=== PATIENT | male | born 1960 | race Caucasian/White ===

== ENCOUNTER 2016-08-28 15:37 | Emergency (ER) | payer BC ==
--- NOTE | 2016-08-28 16:05 | EDM.PDOC ---
ED HPI Trauma - General Chief Complaint: Upper Extremity Injury/Pain Stated Complaint: LEFT RING FINGER LAC Time Seen by Provider: 08/28/16 16:05 - History of Present Illness INITIAL COMMENTS - FREE TEXT/NARRATIVE: 56-year-old male presents emergency room after injuring his left ring finger. This occurred shortly before arrival. The patient was dumping a bag of cement into a small rn placement and got his finger caught between the bag and the lip of the rn placement. The patient has partially avulsed his fingernail and he has significant discomfort with this. He denies any other injury. Patient is unsure of his last tetanus shot. Allergies/ADRs: Allergies No Known Allergies Allergy (Verified 08/28/16 16:07) Home Medications: Ambulatory Orders Cephalexin [Keflex] 500 mg PO Q6HR #28 cap 08/28/16 Hydrocodone/Acetaminophen [Grass Range 5-325 Tablet] 1 - 2 each PO Q6H PRN #6 tablet 08/28/16 Review of Systems - Review of Systems Review Of Systems: See Below Constitutional: Reports: no symptoms Respiratory: Reports: No Symptoms Cardiovascular: Reports: no symptoms GI/Abdominal: Reports: No symptoms Trauma Exam - Physical Exam Exam: See Below Exam Limited By: No limitations General Appearance: Reports: alert, no apparent distress Respiratory Exam: Reports: no respiratory distress, lungs clear, normal breath sounds Cardiovascular: Reports: regular rate, rhythm, no edema, no murmur Extremities: Reports: other (Examination of his left fourth finger shows a distal partial avulsion with proximal superficial lacerations that extend to the nail plate that are short. Patient is discomfort with active range of motion of the distal phalanx. But flexion and extension appears to be intact. Neurovascular status of the hand and fingers normal.) ED TRAUMA EXTREMITY PROCEDURES - Laceration/Wound Repair Left Finger Lac/wound length in cm: 1 Appearance: subcutaneous, irregular Distal NVT: neuro & vascular intact, no tendon injury Anesthetic type: digital Local anesthesia - Lidocaine (Xylocaine): 1% plain Local anesthetic volume: 2cc Skin prep: saline Exploration/Debridement/Repair: wound explored, in a bloodless field, explored to base, no foreign material found Closed with: sutures Suture size: 3-0 # of sutures: 2 Tetanus status addressed: Yes (His tetanus was brought up-to-date today) Complications: No Progress/Comments: Patient had satisfactory anesthesia with 2 cc 1% lidocaine without epinephrine the left fourth finger. Thorough examination of the laceration shows intact skin underneath the nail plate at the distal finger over a 1 cm laceration there is a large gap to the skin margin probably 3-4 mm in the center. 2 holes were bored of the nail plate using the disposable electro-Bovie unit. Then using 3-0 nylon suture placed through each hole to the skin margin below this yielded fairly good wound approximation. Patient tolerated this without difficulty Course - Vital Signs Last Recorded V/S: Last Vital Signs Temp 37.1 C 08/28/16 16:04 Pulse 120 H 08/28/16 16:04 Resp 16 08/28/16 16:04 BP 164/98 H 08/28/16 16:04 Pulse Ox 96 08/28/16 16:04 - Orders/Labs/Meds Orders: Active Orders 24 hr Category Date Time Status Vaccines to be Administered [RC] PER UNIT ROUTINE Care 08/28/16 16:23 Active Fingers Fourth Digit Lt F3 [CR] Stat Exams 08/28/16 16:23 Taken Meds: Medications Discontinued Medications Generic Name Dose Route Start Last Admin Trade Name Freq PRN Reason Stop Dose Admin Diphtheria/Tetanus/Acell Pertussis 0.5 ml 08/28/16 16:23 08/28/16 16:41 Boostrix IM 08/28/16 16:24 0.5 ml .ONCE ONE Administration Lidocaine HCl 50 ml 08/28/16 16:22 08/28/16 16:42 Xylocaine 1% INJECT 08/28/16 16:23 50 ml ONETIME ONE Administration - Re-Assessments/Exams Free Text/Narrative Re-Assessment/Exam: 08/28/16 17:28 X-ray examination is probably normal as a questionable faint possible chip fracture on the palmar surface of the tuft. No other fracture dislocation or abnormality noted on x-ray the patient will be placed in a finger splint he will be discharged on a 5 day course of cephalexin and he will be given a few hydrocodone as he is quite worried his fingers can be really tender after the numbing medicine wears off and Departure - Departure Time of Disposition: 17:29 Disposition: Home, Self-Care 01 Clinical Impression: Finger laceration Prescriptions: Cephalexin [Keflex] 500 mg PO Q6HR #28 cap Hydrocodone/Acetaminophen [Grass Range 5-325 Tablet] 1 - 2 each PO Q6H PRN #6 tablet PRN Reason: Pain Forms: ED Department Discharge Additional Instructions: Return to the emergency room with any questions or problems. Followup in the hospital clinic in 12-14 days for suture removal. He been started on cephalexin, this is an antibiotic to take 4 times daily for 7 days. You have been given a few pain pills, hydrocodone, one or 2 every 6 hours as needed for pain. Allow 12 hours after using this medication before driving or returning to work. Wear the splint for at least 10 days. It can be removed for cleaning. Keep the finger clean and dry for the next 24 hours. After 24 hours he may let water run over it for a few seconds and then gently dab dry. - My Orders Last 24 Hours: My Active Orders 08/28/16 16:23 Vaccines to be Administered [RC] PER UNIT ROUTINE Fingers Fourth Digit Lt F3 [CR] Stat - Assessment/Plan Last 24 Hours: My Active Orders 08/28/16 16:23 Vaccines to be Administered [RC] PER UNIT ROUTINE Fingers Fourth Digit Lt F3 [CR] Stat
[2016-08-28 16:07] VITALS: BP 164/98
[2016-08-28] MEDS ORDERED: Lidocaine 1% 50 ML MDV INJECT ONE (16:22)
[2016-08-28] MEDS ORDERED: Diphtheria,Pertussis(Acell),Tetanus Vaccine 0.5 ML SDV inactive IM ONE (16:23)
--- NOTE | 2016-08-29 11:58 | CR ---
Left fourth finger: Three views centered to the left fourth finger were obtained. Comparison: No previous study. Soft tissue swelling is identified. No fracture, dislocation or other bony abnormality is seen. Impression: 1. Soft tissue swelling. No bony abnormality is identified on left fourth finger study. Diagnostic code #2
== END 2016-08-28 17:45 | disposition home or self-care (01) ==
LOC: JD.ED 15:37
DX: S61.215A Laceration without foreign body of left ring finger without damage to nail, initial encounter (principal); Z23 Encounter for immunization; W23.0XXA Caught, crushed, jammed, or pinched between moving objects, initial encounter
CPT/HCPCS: 12001; 73140-26-F3; 73140-F3; 90471; 90715; 99283-25

== ENCOUNTER 2020-01-07 08:00 | Day surgery (SDC) | payer BC, MEDICAID ==
[~2020-01-07 08:00] MED LIST: Lactated Ringers 1,000 ML IV SCH; Lidocaine 1%/Sod Bicarbonate in NS 8.4% 1 ML Syringe IDERM PRN; Sodium Chloride 0.9% 10 ML Syringe FLUSH PRN
--- NOTE | 2020-01-07 08:16 | PCM.PREANE ---
Preanesthetic Assessment - Procedure Proposed Procedure: Colonoscopy - Anesthesia/Transfusion/Family Hx Anesthesia History: Prior Anesthesia Without Reaction Family History of Anesthesia Reaction: No Transfusion History: No Prior Transfusion(s) - Review of Systems General: No Symptoms Pulmonary: No Symptoms Cardiovascular: No Symptoms Gastrointestinal: No Symptoms Neurological: No Symptoms Other: Reports: Diabetes (gluco check this am 132) - Physical Assessment NPO Status Date: 01/06/20 NPO Status Time: 00:00 Height: 1.7 m Weight: 118.9 kg ASA Class: 3 Mental Status: Alert & Oriented x3 Airway Class: Mallampati = 2 Dentition: Reports: Dentures Thyro-Mental Finger Breadths: 2 Mouth Opening Finger Breadths: 2 ROM/Head Extension: Full Lungs: Clear to Auscultation, Normal Respiratory Effort, Decreased Breath Sounds Cardiovascular: Regular Rate, Regular Rhythm - Lab Values: Laboratory Last Values COVID-19 PCR Not detected (NOT DETECT) 01/03/20 11:40 - Allergies Allergies/Adverse Reactions: Allergies Allergy/AdvReac Type Severity Reaction Status Date / Time No Known Allergies Allergy Verified 01/04/20 14:53 - Blood Blood Available: No Product(s) Available: None - Anesthesia Plan Pre-Op Medication Ordered: None - Acknowledgements Anesthesia Type Planned: MAC Pt an Appropriate Candidate for the Planned Anesthesia: Yes Alternatives and Risks of Anesthesia Discussed w Pt/Guardian: Yes Pt/Guardian Understands and Agrees with Anesthesia Plan: Yes PreAnesthesia Questionnaire HEENT History: Reports: Impaired Vision, Other (See Below) Other HEENT History: wears glasses Cardiovascular History: Reports: None Respiratory History: Reports: None Gastrointestinal History: Reports: None Genitourinary History: Reports: None [employer] History: Reports: None Musculoskeletal History: Reports: Other (See Below) Other Musculoskeletal History: left hand surgery Neurological History: Reports: None Psychiatric History: Reports: None Endocrine/Metabolic History: Reports: Diabetes, Type II, Obesity/BMI 30+ Hematologic History: Reports: None Immunologic History: Reports: None Oncologic (Cancer) History: Reports: None Dermatologic History: Reports: None - Infectious Disease History Infectious Disease History: Reports: None - Past Surgical History Head Surgeries/Procedures: Reports: None HEENT Surgical History: Reports: None Cardiovascular Surgical History: Reports: None Respiratory Surgical History: Reports: None GI Surgical History: Reports: None Male Surgical History: Reports: Vasectomy Endocrine Surgical History: Reports: None Neurological Surgical History: Reports: None Musculoskeletal Surgical History: Reports: None Oncologic Surgical History: Reports: None Dermatological Surgical History: Reports: None - SUBSTANCE USE Smoking Status *Q: Former Smoker Tobacco Use Within Last Twelve Months: No Second Hand Smoke Exposure: No Days Per Week of Alcohol Use: 1 Number of Drinks Per Day: 0 Total Drinks Per Week: 0 Recreational Drug Use History: No - HOME MEDS Home Medications: Home Meds Clotrimazole [Lotrimin AF 1% Crm] 1 dose TOP BID 01/04/20 [History] Empagliflozin [Jardiance] 25 mg PO DAILY 01/04/20 [History] Rosuvastatin [Crestor] 10 mg PO DAILY 01/04/20 [History] amLODIPine [Norvasc] 5 mg PO DAILY 01/04/20 [History] - CURRENT (IN HOUSE) MEDS Current Meds: Current Medications Lactated Ringer's (Ringers, Lactated) 1,000 mls @ 125 mls/hr IV ASDIRECTED LISSET Stop: 01/07/20 23:00 Lidocaine/Sodium Bicarbonate (Buffered Lidocaine 1% In Ns 8.4%) 0.25 ml IDERM ONETIME PRN PRN Reason: Prior to IV Start Stop: 01/07/20 18:00 Sodium Chloride (Saline Flush) 10 ml FLUSH ASDIRECTED PRN PRN Reason: Keep Vein Open Stop: 01/07/20 18:00
[2020-01-07] MEDS ORDERED: Propofol 200 MG/20 ML SDV ONE ×3 (09:08→09:50)
[2020-01-07] MEDS ORDERED: Midazolam 1 MG/ML 2 ML SDV ONE (09:08)
[2020-01-07] MEDS ORDERED: Lidocaine 1% 2 ML SDV ONE (09:08)
[2020-01-07] MEDS ORDERED: fentaNYL 100 MCG/2 ML SDV ONE (09:08)
[2020-01-07] MEDS ORDERED: Labetalol 100 MG/20 ML MDV ONE (09:13)
[2020-01-07] MEDS ORDERED: Lactated Ringers 1,000 ML ONE (09:43)
--- NOTE | 2020-01-07 10:26 | PCM48HPAN ---
Post Anesthesia Note - EVALUATION WITHIN 48HRS OF ANESTHETIC Vital Signs in Normal Range: Yes Patient Participated in Evaluation: Yes Respiratory Function Stable: Yes Airway Patent: Yes Cardiovascular Function Stable: Yes Hydration Status Stable: Yes Pain Control Satisfactory: Yes Nausea and Vomiting Control Satisfactory: Yes Mental Status Recovered: Yes Vital Signs: Last Vital Signs Temp 36.1 C 01/07/20 08:00 Pulse 87 01/07/20 08:00 Resp 20 01/07/20 08:00 BP 176/83 H 01/07/20 08:00 Pulse Ox 96 01/07/20 08:00 - COMMENTS/OBSERVATIONS Free Text/Narrative:: no anesthesia complications noted
[2020-01-07 10:57] VITALS: BP 124/64; PULSE 72
--- NOTE | 2020-01-07 11:18 | PROC ---
DATE OF OPERATION: 01/07/2020 SURGEON: Jason Vicente MD PREOPERATIVE DIAGNOSES: 1. Positive Cologuard. 2. Family history of colon cancer. POSTOPERATIVE DIAGNOSIS: Numerous polyps. OPERATION PERFORMED: Colonoscopy. ANESTHESIA: Monitored anesthesia care. COMPLICATIONS: None. INDICATION AND CONSENT: Mr. Mazariegos is a 59-year-old male who has a family history of colon cancer and tested positive for Cologuard. Never had colonoscopy in the past. Otherwise, has no other symptoms. Due to this, it was recommended he undergo colonoscopy. He came to my clinic. We discussed about this and agreed to proceed. We discussed risks, benefits, and alternatives. Informed consent was obtained. DESCRIPTION OF PROCEDURE: The patient was taken to the procedure room and placed in the left lateral decubitus position. Following induction of monitored anesthesia care, I began the procedure with a perianal exam and a digital rectal exam, which both were normal. The endoscope was inserted into the colon and taken all the way to the cecum. The cecum was normal. The ileocecal valve and appendiceal orifice were photographed. Upon withdrawal, we found a 7 mm polyp in the ascending colon. This was semi-sessile. Saline injection technique was used to lift up the polyp, and a snare was used to resect it completely. 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 The mucosa lining this lipoma was normal appearing, but we took a biopsy from this mucosa to make sure there were no abnormalities. The biopsy was taken with cold forceps. Proceeded to transverse colon. There was a flat polyp in the transverse colon. This was resected with snare with the help of saline lift technique. Then, we proceeded to the sigmoid colon. There were multiple small polyps here at the sigmoid colon. The sizes ranged from 2 mm to 5 mm. These polyps were taken out using cold forceps. There were 7 of them, and they were placed in 1 single specimen jar. EBL was minimal. We proceeded to the rectosigmoid. There were two 8 mm polyps, both were resected with a hot snare and retrieved. In the mid rectum, there were 3 small polyps ( 3-4 mm) that were resected with snare and retrieved. In the distal rectum, there was another 4 mm polyp that was resected with the hot snare and retrieved. There was another separate 4 mm pedunculated polyp in the distal rectum that was also resected with a hot snare and retrieved. In total, there were about 17 polyps that were resected. Most of them were in the sigmoid and rectal area. At this point, once all the polyps were resected, air was suctioned out from the colon. On retroflexion, there were no other abnormalities. The scope was removed, and this marked the end of the procedure. The patient was awoken from monitored anesthesia care and taken to Recovery. He was in stable condition. There were no immediate complications. The patient will be allowed to return home. The patient is warned to watch for bleeding, infection, or new abdominal pain. He will return to clinic in 2 weeks for discussion of pathology results. ALMA /[id number] MTDD
== END 2020-01-07 10:56 | disposition home or self-care (01) ==
LOC: JD.SDS 08:00
PROVIDERS: ATTEND Surgery
DX: D12.2 Benign neoplasm of ascending colon (principal); D12.3 Benign neoplasm of transverse colon; K62.1 Rectal polyp; Z01.812 Encounter for preprocedural laboratory examination; Z20.828 Contact with and (suspected) exposure to other viral communicable diseases; E11.9 Type 2 diabetes mellitus without complications; E78.5 Hyperlipidemia, unspecified; I10 Essential (primary) hypertension; E66.9 Obesity, unspecified; Z79.899 Other long term (current) drug therapy; Z80.0 Family history of malignant neoplasm of digestive organs; Z87.891 Personal history of nicotine dependence; Z68.41 Body mass index [BMI] 40.0-44.9, adult
CPT/HCPCS: 45380; 45385; 82962; 87635; J2001; J2250; J2704; J3010; J3490; J7120; 00811; U0002

== ENCOUNTER 2023-07-26 08:15 | Day surgery (SDC) | payer MEDICARE, OTHER ==
[~2023-07-26 08:15] MED LIST changes: -Lactated Ringers 1,000 ML IV SCH; -Lidocaine 1%/Sod Bicarbonate in NS 8.4% 1 ML Syringe IDERM PRN
[2023-07-26] MEDS: Lactated Ringers 1,000 ML IV SCH (08:30)
[2023-07-26] MEDS ORDERED: Sodium Chloride 0.9% 10 ML Syringe FLUSH SCH (09:00)
[2023-07-26] MEDS ORDERED: Lidocaine 1% 4 ML ONE (09:30)
[2023-07-26] MEDS ORDERED: Midazolam 1 MG/ML 2 ML SDV ONE (09:31)
[2023-07-26] MEDS ORDERED: fentaNYL 100 MCG/2 ML SDV ONE (09:31)
[2023-07-26] MEDS ORDERED: Propofol 200 MG/20 ML SDV ONE (09:33)
[2023-07-26] MEDS ORDERED: Phenylephrine 1% 10 MG/ML SDV ONE (10:40)
[2023-07-26] MEDS ORDERED: Lactated Ringers 1,000 ML ONE (10:45)
[2023-07-26 13:46] VITALS: BP 128/78; PULSE 78
== END 2023-07-26 12:06 | disposition home or self-care (01) ==
LOC: JD.SDS 08:15
PROVIDERS: ATTEND Student in an Organized Health Care Education/Training Program
DX: Z12.11 Encounter for screening for malignant neoplasm of colon (principal); D12.5 Benign neoplasm of sigmoid colon; K64.4 Residual hemorrhoidal skin tags; Z88.8 Allergy status to other drugs, medicaments and biological substances; Z87.891 Personal history of nicotine dependence; Z79.899 Other long term (current) drug therapy
CPT/HCPCS: 00811; 82947; 88305; J2250; J2371; J2704; J3010; J3490; J7120

== ENCOUNTER 2024-12-10 07:15 | Day surgery (SDC) | payer MEDICARE ==
[2024-12-10] MEDS: Lactated Ringers 1,000 ML IV SCH (07:05)
[2024-12-10] MEDS ORDERED: Propofol 200 MG/20 ML SDV ONE (07:19)
[2024-12-10] MEDS ORDERED: Midazolam 1 MG/ML 2 ML SDV ONE (07:19)
[2024-12-10] MEDS ORDERED: Lidocaine 1% 4 ML ONE (08:03)
[2024-12-10 09:12] VITALS: BP 168/79; PULSE 82
[2024-12-10] MEDS ORDERED: Sodium Chloride 0.9% 10 ML Syringe FLUSH PRN (09:14)
[2024-12-10] MEDS ORDERED: Sodium Chloride 0.9% 10 ML Syringe FLUSH SCH (21:00)
== END 2024-12-10 09:00 | disposition home or self-care (01) ==
LOC: JD.SDS 07:15
PROVIDERS: ATTEND Orthopaedic Surgery
DX: M65.311 Trigger thumb, right thumb (principal); E78.00 Pure hypercholesterolemia, unspecified; E11.9 Type 2 diabetes mellitus without complications; E66.9 Obesity, unspecified; I11.0 Hypertensive heart disease with heart failure; I50.20 Unspecified systolic (congestive) heart failure; I25.10 Atherosclerotic heart disease of native coronary artery without angina pectoris; Z88.5 Allergy status to narcotic agent; Z68.30 Body mass index [BMI] 30.0-30.9, adult; Z79.82 Long term (current) use of aspirin; Z79.899 Other long term (current) drug therapy
CPT/HCPCS: 26055; J0665; J2003; J2250; J2704; J7120; 01810